=== PATIENT | male | born 1955 | race Caucasian/White ===

== ENCOUNTER → 2021-03-06 | Outpatient (CLI) | payer MEDICARE, MEDICAID ==
[2020-09-26 15:00] VITALS: BP 104/59
[~2021-03-06] MED LIST: ACET325T9 PO; FLUT1DIS3 IH; FOLI0.8C PO; GABA-585 PO; GABA300C18 PO; LACT1CAP19 PO; LEVE100020 PO; LEVO500T8 PO; MAGN200T7 PO; MULT-245 PO; OXYC1TAB15 PO; PANT40TA77 PO; THIA100T57 PO; TRAM50TA PO
--- NOTE | 2021-03-06 16:42 | RAD ---
XR CHEST 2V INDICATION: PRE OP. RIGHT HIP ARTHROPLASTY SCHEDULED 03/20/21 / [facility]. Instructions: / History: . COMPARISON STUDY: 09/20/2020. FINDINGS: Lungs: Normal lung volume. No pulmonary mass or consolidation. Right apical bullous disease. The trac heobronchial tree and hilar structures are normal. Pleura: No pleural effusion or pneumothorax. Heart and Mediastinum: The cardiomediastinal silhouette is normal. Atherosclerosis of the thoracic ao rta. IMPRESSION: No acute cardiopulmonary process. Electronically signed by: Jeremy Kothari MD (03/06/2021 4:40 PM) [id number]
== END ==
LOC: SURGPAT 13:37
PROVIDERS: ATTEND Orthopaedic Surgery
DX: Z01.818 Encounter for other preprocedural examination (principal); M16.11 Unilateral primary osteoarthritis, right hip; I70.0 Atherosclerosis of aorta
CPT/HCPCS: 36415; 71046; 82306; 83036

== ENCOUNTER 2021-03-20 07:14 | Inpatient (IN) | payer MEDICARE, MEDICAID ==
[2021-03-06 14:37] VITALS: BP 135/78
[2021-03-20] VITALS (9 sets, daily range): BP systolic 109–151; BP diastolic 61–98
[~2021-03-20] VITALS: Ht 180.3 cm; Wt 70.0 kg
[~2021-03-20 07:14] MED LIST changes: +ACETAMINOPHEN 500 MG TABLET PO PRN; +CLINDAMYCIN 900MG PREMIX 50 ML IV PRN; +DEXAMETHASONE SOD PHOS 4 MG/ML VIAL ONE; +GABAPENTIN 300 MG CAPSULE. PO PRN; +HYDROmorphone 2 MG/ML VIAL IVP PRN; +IV RINGERS,LACTATED 1000ML 1,000 ML IV SCH; +LIDOCAINE 2% PF 5 ML VIAL. ONE; +MELOXICAM 7.5 MG TABLET PO PRN; +MORPHINE SULFATE 2 MG/ML INJ. IVP PRN; +MORPHINE SULFATE 5 MG, KETOROLAC 30MG VIAL 30 MG, ROPIVacaine 0.5% PF 60 ML, EPINEPHrin... INT ART ONE; +ONDANSETRON PF 4 MG/2 ML VIAL. ONE; +PROCHLORPERAZINE 10 MG/2 ML VIAL. IVP PRN; +PROPOFOL 10 MG/ML (20ML) VIAL. IV ONE; +ROCURONIUM 50 MG/5 ML VIAL. ONE; +TRANEXAMIC ACID 1,000 MG in IV NS 50ML -- 1ST BAG INJ ONE; +fentaNYL PF VIAL 100 MCG/2 ML VIAL IVP PRN
[2021-03-20] MEDS ORDERED: HYDR-2761 PO (07:36)
[2021-03-20] MEDS ORDERED: TRANEXAMIC ACID in NS IVPB 100 ML ONE (07:42)
[2021-03-20 07:45] LABS: PROTHROMBIN TIME PATIENT 12.2 SEC (11.7-14.0)
[2021-03-20] MEDS ORDERED: fentaNYL PF VIAL 100 MCG/2 ML VIAL ONE ×2 (07:46→10:12)
[2021-03-20] MEDS ORDERED: TRANEXAMIC ACID 1,000 MG in IV NS 50ML -- 2ND BAG INJ ONE (08:00)
[2021-03-20] MEDS ORDERED: SUCCINYLCHOLINE 200 MG/10 ML VIAL. ONE (08:03)
[2021-03-20] MEDS ORDERED: VANCOMYCIN 1 GM VIAL. ONE ×2 (08:05)
[2021-03-20] MEDS ORDERED: INSULIN LISPRO 100 UNIT/ML 3ML VIAL for OP,RR ONLY. SQ PRN (08:45)
--- NOTE | 2021-03-20 08:46 | HP ---
ADMIT DATE: 03/20/2021 CHIEF COMPLAINT: Bilateral hip pain, right worse than left. HISTORY OF PRESENT ILLNESS: The patient is a 65-year-old male with bilateral hip pain, right greater than left, going on for many years, now severely affecting his activities of daily living. He has done physical therapy which just aggravated the hip. He has pain in the groin area, radiating to the upper thigh and is at a rehabilitation facility in [place] for about the past 4-5 months and has quit smoking since his entry into the facility. PAST MEDICAL HISTORY: Significant for history of alcoholism, seizures, COPD, reflux disease, dysphagia, and some protein malunion. PAST SURGICAL HISTORY: Esophageal surgery, colonoscopy and prostate surgery. FAMILY HISTORY: Denies any family history. SOCIAL HISTORY: He is a former smoker, quit over 7 months ago. Alcohol use is very much curtailed since his rehabilitation facility stay. Denies any drug use. MEDICATIONS: List is reviewed. ALLERGIES: HE HAS ALLERGIES TO CODEINE AND PENICILLIN. REVIEW OF SYSTEMS: Denies any chest pain, shortness of breath, focal weakness, numbness, tingling, or other recent constitutional symptoms or medical issues. PHYSICAL EXAMINATION: VITAL SIGNS: Per admission sheet. HEENT: Atraumatic, normocephalic. HEART: Regular rate and rhythm. LUNGS: Clear to auscultation bilaterally. ABDOMEN: Benign. EXTREMITIES: Examination of both hips, he has pain on already decreased range of motion. The right is worse than the left, where he has severe pain on his limited extremes of range of motion. The right leg is slightly short compared to the left. He has minimal tenderness over the trochanteric bursa. Negative straight leg raise bilaterally. Normal alignment, stability, bilateral knees and ankles with intact motor function, distal pulses, sensation, reflexes, skin in both lower extremities throughout. LABORATORY DATA: X-rays show bone on bone degenerative change in both hips with femoral head collapse and some superior erosion into the acetabulum on the right side compared to the left as well. IMPRESSION: Primary osteoarthritis of both hips, right hip pain, more so than left. TREATMENT PLAN: I previously covered with him risks, benefits, postoperative course of a total hip arthroplasty. The risks of instability, leg length inequality, continued pain, nerve or blood vessel damage, infection, medical or other anesthetic complications among others. He is severely limited in his ability to get around and we talked about the immobility related concerns with his current condition, especially as he has quit his smoking and alcohol and really wants to get around better and be more healthy. All his questions were answered and consent was obtained. He agrees to proceed with total hip arthroplasty on the right with [facility] Observ[facility] to follow. ZUNILDA DR: Darling TID: [id number]
[2021-03-20] MEDS ORDERED: HYDROmorphone 2 MG/ML VIAL ONE (09:09)
[2021-03-20] MEDS ORDERED: DESFLURANE 61 TO 120 MINUTES IH ONE (09:36)
[2021-03-20] MEDS ORDERED: SEVOFLURANE > 120 MINUTES. IH ONE (09:36)
[2021-03-20] MEDS ORDERED: DEXTROSE 50% 25 GM / 50ML DISP.SYRIN. IV PRN (10:00)
[2021-03-20] MEDS ORDERED: 0.9 % SODIUM CHLORIDE 10 ML DISP.SYRIN. IV PRN (10:00)
[2021-03-20] MEDS ORDERED: MORPHINE SULFATE 2 MG/ML INJ. IVP PRN (10:00)
[2021-03-20] MEDS ORDERED: diphenhydrAMINE 50 MG/ML VIAL IVP PRN (10:00)
[2021-03-20] MEDS ORDERED: fentaNYL PF VIAL 100 MCG/2 ML VIAL IVP PRN (10:00)
[2021-03-20] MEDS ORDERED: ZOLPIDEM 5 MG TABLET. PO PRN (10:00)
[2021-03-20] MEDS ORDERED: CALCIUM CARBONATE 500 MG TAB.CHEW PO PRN (10:00)
[2021-03-20] MEDS: fentaNYL PF VIAL 100 MCG/2 ML VIAL IVP PRN ×2 (10:16→10:31)
[2021-03-20] MEDS: IV NORMAL SALINE 1000ML BAG 1,000 ML IV SCH ×2 (10:35→17:25)
--- NOTE | 2021-03-20 11:29 | NUR ---
received from recovery. mk is slightly confused to situation and history. He has good sensation , motion and pulses bilateral lower extremities. His strength in his lower extremities is weak r>l. ARMANDO dressing is clean dry and intact. placed closed to nurse's station at this time for forgetfulness. States "I'm not crazy" cooperative at this time. Has no close family and is a poor historian
[2021-03-20] MEDS: ONDANSETRON PF 4 MG/2 ML VIAL. IVP SCH ×2 (12:00→18:00)
[2021-03-20] MEDS: ceFAZolin SODIUM IV Push 1 GM VIAL. IVP SCH ×2 (12:32→21:14)
[2021-03-20] MEDS: oxyCODONE IR 5 MG TABLET PO PRN ×3 (12:33→21:36)
[2021-03-20] MEDS: ONDANSETRON ODT 4 MG TAB.RAPDIS. PO SCH ×2 (12:34→17:22)
--- NOTE | 2021-03-20 15:00 | NUR ---
Cody is alert and oriented x4. he tolerated lunch well.
--- NOTE | 2021-03-20 15:47 | PDOC4 ---
Operative Note Operative Note Date of surgery: 03/20/2021 Preoperative diagnosis: Degenerative joint disease right hip Postoperative diagnosis: Same Operative procedure: Right total hip arthroplasty with anterior approach Surgeon Isak Audit Associate: Fuad hernandez Anesthesia: General Estimated blood loss: 200 cc Complications: None Drains: None Operative indications: Please see my orthopedic clinic note and dictated history and physical for detailed operative indications and note that we covered risks benefits postoperative course of the procedure. We specifically discussed the p ossibility of infection leg length inequality, nerve or blood vessel damage premature wear or loosening medical or other anesthetic complications among others. All his questions were answered and he wishes to proceed with surgical evaluation and treatment having given informed consent Operative text: Patient was identified procedure verified patient placed in the supine position on the [place] fracture table after adequate amounts of general anesthesia were administered. All bony prominences were well-padded and right hip was prepped and draped in the standard sterile fashion. After timeout was performed patient procedure identified and verified an incision was made just distal to the anterior superior iliac spine running along the tensor fascia steve for a distance of about 4 inches. Fascia was incised tensor fascia steve was taken laterally and circumflex vessels were located and coagulated and the anterior capsule was exposed with the rectus femoris gently retracted medially along with the underlying fascia that was dissected free. Capsule was split in a T-shaped incision and superior aspect of the capsule was excised and further superior release was carried out with the hip in external rotation. Hip was returned to 40 degrees external rotation and a napkin ring cut was made with an Avenir [place] broach for reference napkin ring was removed and femoral head was removed and sized. Reaming was carried out to a size 59 with a size 60 Biomet G7 acetabular shell was placed in proper version under fluoroscopic guidance and excellent scratch fit was noted. A 40 mm vitamin E liner was impacted into place. Femur was brought into maximum external rotation extension and adduction and release was carried out at the 11 o'clock position to free up the femur and retractors were placed medially and above the greater trochanter for maximum femoral exposure box osteotome was used along with the rattail rasp and successive size broaching up to a size 3 which provided excellent stability and fit within the canal. Calcar reaming was carried out and trial fitting with a +7 40 mm head to reproduce leg length and offset appropriately under fluoroscopic guidance. Trial components were removed and a size 3 standard offset collared Avenir stem was impacted into place with a +7 ceramic 40 mm head. Excellent stability and range of motion were noted and leg length and offset were reproduced closely according to preoperative measurements and measurements from the contralateral side. Thorough irrigation carried out with normal saline solution and pulse lavage. Intra-articular mixture was injected subperiosteally throughout the joint capsule and subcutaneous areas and 1 g vancomycin sprinkled throughout the joint capsule area. Fascia was closed with #1 PDS strata fix suture in a running fashion subcutaneous closure with buried Vicryl skin closure with subcuticular Monocryl and a sergio dressing was applied. Patient was returned to recovery room in stable condition having tolerated the procedure well. Fuad hernandez was present for the procedure and assisted in the patient positioning prepping draping retraction closure and dressings KIRTI BROWN MD Mar 20, 2021 15:47
[2021-03-20] MEDS ORDERED: WARFARIN 7.5 MG TABLET. PO ONE (16:00)
[2021-03-20] MEDS: FERROUS SULFATE 325 MG TABLET. PO SCH (17:22)
--- NOTE | 2021-03-20 22:29 | NUR ---
Assisting patient to toilet, pt stood from chair then immediately sat down on chair. "I can't do it." Situated in bed, urinal at bedside. States [facility] and that he's had multiple falls there. Roxicodone and Ambien given per request. Related a story that he used to "self medicate" himself inappropriately with Xanax, ETOH and other people's RX meds. States he and his brother are looking for an apartment for him. Expects to return to [facility] for 2 weeks of PT at discharge.
[2021-03-21 02:25] VITALS: BP 128/85
[2021-03-21] MEDS: ceFAZolin SODIUM IV Push 1 GM VIAL. IVP SCH (02:42)
[2021-03-21] MEDS: oxyCODONE IR 5 MG TABLET PO PRN ×3 (02:42→21:17)
[2021-03-21] MEDS ORDERED: MAGNESIUM HYDROXIDE 2,400 MG/30 ML ORAL.SUSP. PO PRN (06:00)
[2021-03-21] MEDS: ONDANSETRON ODT 4 MG TAB.RAPDIS. PO SCH ×2 (06:00)
[2021-03-21] MEDS: traMADol 50 MG TABLET PO SCH ×3 (06:00→17:08)
[2021-03-21] MEDS: ONDANSETRON PF 4 MG/2 ML VIAL. IVP SCH ×2 (06:00)
[2021-03-21] MEDS ORDERED: GABAPENTIN 100 MG CAPSULE. PO SCH (06:00)
[2021-03-21 06:22] VITALS: BP 124/88
[2021-03-21 09:11] LABS: PROTHROMBIN TIME PATIENT 13.6 SEC (11.7-14.0)
[2021-03-21] MEDS: MULTIVITAMIN with MINERAL TABLET. PO SCH (09:14)
[2021-03-21] MEDS: FERROUS SULFATE 325 MG TABLET. PO SCH ×2 (09:14→17:08)
[2021-03-21] MEDS: MELOXICAM 7.5 MG TABLET PO SCH (09:14)
[2021-03-21] MEDS: THIAMINE 100 MG TABLET. PO SCH (09:15)
[2021-03-21] MEDS: ACETAMINOPHEN 500 MG TABLET PO SCH ×3 (09:15→21:17)
[2021-03-21] MEDS: GABAPENTIN 100 MG CAPSULE. PO SCH ×2 (09:20→15:04)
[2021-03-21] MEDS: levETIRAcetam 500 MG TABLET PO SCH ×2 (09:20→21:17)
[2021-03-21] MEDS: PANTOPRAZOLE 40 MG TABLET.DR. PO SCH (09:20)
[2021-03-21] MEDS: MAGNESIUM OXIDE 400 MG TABLET PO SCH ×3 (09:20→21:17)
--- NOTE | 2021-03-21 10:18 | NUR ---
Pharmacy Warfarin Dosing Note S:Pharmacy consulted to assist with anticoagulation therapy started 03/20/21 with target INR: 1.6 - 2.5 O:CALVIN ESPINAL is a 65 year old M with ARTURO LABS: Last INR: 1 Last HGB: - Last HCT: - Last PLT: - Last dose of 7.5 mg given on 03/20/21 at 1723 Previous Regimen: Vitamin K given: Drug Interaction Changes: Ongoing Drug Interactions: A:INR of 1 is below desired range. Target range for this patient is: 1.6 - 2.5 P: Warfarin dose: 5 mg Today at 1600 Bridge Therapy: None Next INR due 03/22/21. Pharmacy anticoagulation service will continue to follow. MARCI LEIJA RPH, 03/21/21 [id number]
[2021-03-21] MEDS ORDERED: ONDANSETRON ODT 4 MG TAB.RAPDIS. PO PRN (12:00)
[2021-03-21] MEDS ORDERED: ONDANSETRON PF 4 MG/2 ML VIAL. IVP PRN (12:00)
[2021-03-21] MEDS: ALBUTEROL SULFATE 2.5 MG/3 ML NEBU. NEB SCH ×3 (12:05→21:02)
[2021-03-21] MEDS: BUDESONIDE 0.5 MG/2 ML NEBU. NEB SCH ×2 (12:05→21:02)
--- NOTE | 2021-03-21 13:31 | PDOC ---
PROGRESS NOTES Date of Service DATE: 03/21/21 TIME: 13:23 Subjective Subjective Problems overnight: Hip is sore but pain reasonably controlled, getting up and around with physical therapy Objective Vital Signs Vital Signs Date Time Temp Pulse Resp B/P (MAP) Pulse Ox O2 Delivery O2 Flow Rate FiO2 03/21/21 12:56 Room Air 03/21/21 12:08 98 03/21/21 09:14 2.0 03/21/21 06:22 98.1 96 18 124/88 (100) 98.1 Physical Exam Wilver dressing clean dry intact leg lengths equal distal neurovascular status intact Labs Laboratory Tests Test 03/20/21 07:12 03/20/21 08:35 03/21/21 08:35 Prothrombin Time 12.2 SEC (11.7-14.0) 13.6 SEC (11.7-14.0) Prothromb Time International Ratio 0.9 (0.8-1.1) 1.0 (0.8-1.1) Activated Partial Thromboplast Time 33 SEC (24-38) Glucose (Fingerstick) 112 mg/dL (70-99) Laboratory Tests Test 03/21/21 08:35 Prothrombin Time 13.6 SEC (11.7-14.0) Prothromb Time International Ratio 1.0 (0.8-1.1) Imaging Intra-Op imaging shows well-placed total hip arthroplasty right leg slightly shortened by maximum of about 4 mm which is improved from his preop shortening Assessment Assessment POD#1 right total hip arthroplasty Plan Plan of Care Continue mobilize with physical therapy, warfarin per anticoagulation clinic, back to [facility] on discharge Justicifation of Admission Dx: Justifications for Admission: Justification of Admission Dx: N/A KIRTI BROWN MD Mar 21, 2021 13:31
[2021-03-21] MEDS: IV NORMAL SALINE 1000ML BAG 1,000 ML IV SCH (13:37)
[2021-03-21 15:15] VITALS: BP 103/75
[2021-03-21] MEDS ORDERED: BISACODYL 10 MG SUPP.RECT. PR PRN (16:00)
[2021-03-21] MEDS ORDERED: WARFARIN 5 MG TABLET. PO ONE (16:00)
[2021-03-21 18:33] VITALS: BP 105/67
--- NOTE | 2021-03-21 20:22 | PATHOLOGY ---
[facility] Accession Number: [id number] . 01 Material submitted: . femur - RIGHT FEMORAL HEAD. Modifiers: right, head . 01 Clinical history: . RIGHT HIP OA R TOTAL HIP ANTERIOR . 02 Diagnosis: Segments of bone and articular cartilage, anterior right total hip arthroplasty: - Degenerative arthritis. (JPM/db; 03/21/2021) LBQ 03/21/2021 1516 Local . 02 Electronically signed: . Richard Beck MD, Pathologist NPI- [id number] . 01 Gross description: . The specimen is received in formalin, labeled "Teichmann, Cody L and femoral head". It consists of 2 hurley, irregular firm bony tissue segments measuring 3.8 and 6.2 cm. The larger fragment appears grossly consistent with a femoral head. The larger fragment displays an irregular articular surface with eburnation-like changes and a smooth resection surface with a 1.5 cm in diameter canal through the bone marrow. A maintenance representative section is submitted in A1 following decalcification. (MRF; 03/20/2021) MFE/MFE 03/20/2021 1520 Local . 02 Pathologist provided ICD-10: M16.11 . 02 CPT . 481237, [id number] Specimen Comment: A courtesy copy of this report has been sent to [phone] Specimen Comment: Report sent to / DR RAMIREZ Performed at: 01 [facility] [address], [place] [id number] MD Demetrius Negron MD Phone: [phone] Performed at: 02 [facility] [address] [place] [address], [place] [id number] MD Richard Beck MD Phone: [phone]
[2021-03-21] MEDS: GABAPENTIN 300 MG CAPSULE. PO SCH (21:17)
[2021-03-22] MEDS: traMADol 50 MG TABLET PO SCH ×4 (00:04→17:20)
[2021-03-22] MEDS: oxyCODONE IR 5 MG TABLET PO PRN ×3 (02:41→19:45)
[2021-03-22] MEDS: ACETAMINOPHEN 500 MG TABLET PO SCH ×4 (02:42→21:16)
[2021-03-22 05:04] LABS: PROTHROMBIN TIME PATIENT 20.9 SEC (11.7-14.0)
[2021-03-22] MEDS: PANTOPRAZOLE 40 MG TABLET.DR. PO SCH (05:51)
[2021-03-22 05:53] VITALS: BP 105/73
[2021-03-22] MEDS: BUDESONIDE 0.5 MG/2 ML NEBU. NEB SCH ×2 (07:07→20:52)
[2021-03-22] MEDS: ALBUTEROL SULFATE 2.5 MG/3 ML NEBU. NEB SCH ×4 (07:07→20:52)
--- NOTE | 2021-03-22 08:00 | NUR ---
resting quietly in bed. states that his pain 03/20.. Had a bad night. transfers himself from bed to wheelchair without problem. uses w/c to go to bathroom; otherwise uses walker for therapy.
[2021-03-22] MEDS: MAGNESIUM OXIDE 400 MG TABLET PO SCH ×3 (08:40→21:16)
[2021-03-22] MEDS: THIAMINE 100 MG TABLET. PO SCH (08:40)
[2021-03-22] MEDS: MULTIVITAMIN with MINERAL TABLET. PO SCH (08:40)
[2021-03-22] MEDS: GABAPENTIN 100 MG CAPSULE. PO SCH ×2 (08:41→17:20)
[2021-03-22] MEDS: FERROUS SULFATE 325 MG TABLET. PO SCH ×2 (08:41→17:19)
[2021-03-22] MEDS: MELOXICAM 7.5 MG TABLET PO SCH (08:41)
[2021-03-22 08:45] LABS: HEMOGLOBIN 9.8 g/dL (13.0-17.5)
[2021-03-22 11:15] VITALS: BP 110/61
[2021-03-22] MEDS: IV NORMAL SALINE 1000ML BAG 1,000 ML IV SCH (11:53)
[2021-03-22] MEDS: levETIRAcetam 500 MG TABLET PO SCH ×2 (11:53→21:16)
[2021-03-22] MEDS ORDERED: WARFARIN 1 MG TABLET. PO ONE (16:00)
--- NOTE | 2021-03-22 16:48 | PDOC ---
PROGRESS NOTES Date of Service DATE: 03/22/21 TIME: 16:46 Subjective Subjective Problems overnight: Less painful than yesterday and getting up and around a little bit better Objective Vital Signs Vital Signs Date Time Temp Pulse Resp B/P (MAP) Pulse Ox O2 Delivery O2 Flow Rate FiO2 03/22/21 15:15 94 Room Air 03/22/21 11:15 98.2 107 20 110/61 (77) 98.2 03/22/21 06:21 2.0 Physical Exam Wilvre dressing clean dry intact leg lengths equal distal neurovascular status intact Labs Laboratory Tests Test 03/21/21 08:35 03/22/21 04:10 Prothrombin Time 13.6 SEC (11.7-14.0) 20.9 SEC (11.7-14.0) Prothromb Time International Ratio 1.0 (0.8-1.1) 1.8 (0.8-1.1) Hemoglobin 9.8 g/dL (13.0-17.5) Hematocrit 29.0 % (39.0-53.0) Mean Corpuscular Hemoglobin Concent 34 g/dL (31-37) Laboratory Tests Test 03/22/21 04:10 Hemoglobin 9.8 g/dL (13.0-17.5) Hematocrit 29.0 % (39.0-53.0) Mean Corpuscular Hemoglobin Concent 34 g/dL (31-37) Prothrombin Time 20.9 SEC (11.7-14.0) Prothromb Time International Ratio 1.8 (0.8-1.1) Assessment Assessment POD#2 total hip arthroplasty Plan Plan of Care Continue mobilize with physical therapy weightbearing as tolerated Warfarin anticoagulation Transfer back to his facility planned tomorrow due to required testing for Covid Justicifation of Admission Dx: Justifications for Admission: Justification of Admission Dx: Yes Comments: Awaiting required Covid testing results for transfer back to his facility KIRTI BROWN MD Mar 22, 2021 16:48
--- NOTE | 2021-03-22 17:49 | NUR ---
reviewed discharge instructions with patient. reviewed incisional care, follow up restrictions to activities of living . oxycodone given for ride home. Coumadin given and explained would be getting lab draw every Friday the pharmacist will call Friday afternoon with dosage. home health will start on Friday. verbalized understanding of these instructions. dismissed to home with friend Addendum: 03/22/21 at 1753 by JUVENAL HARRIS RN wrong patient
[2021-03-22 18:22] VITALS: BP 111/81
[2021-03-22] MEDS: GABAPENTIN 300 MG CAPSULE. PO SCH (21:16)
[2021-03-23] MEDS: traMADol 50 MG TABLET PO SCH ×3 (01:13→12:02)
[2021-03-23] MEDS: ACETAMINOPHEN 500 MG TABLET PO SCH ×3 (03:06→14:13)
[2021-03-23] MEDS: oxyCODONE IR 5 MG TABLET PO PRN ×3 (03:06→14:13)
[2021-03-23] MEDS: PANTOPRAZOLE 40 MG TABLET.DR. PO SCH (06:14)
[2021-03-23 06:16] VITALS: BP 104/66
[2021-03-23] MEDS: BUDESONIDE 0.5 MG/2 ML NEBU. NEB SCH (06:20)
[2021-03-23] MEDS: ALBUTEROL SULFATE 2.5 MG/3 ML NEBU. NEB SCH ×2 (06:20→11:27)
[2021-03-23 08:13] LABS: HEMATOCRIT 28.2 % (39.0-53.0); HEMOGLOBIN 9.4 g/dL (13.0-17.5)
[2021-03-23 08:24] LABS: PROTHROMBIN TIME PATIENT 16.6 SEC (11.7-14.0)
[2021-03-23] MEDS: MELOXICAM 7.5 MG TABLET PO SCH (08:57)
[2021-03-23] MEDS: GABAPENTIN 100 MG CAPSULE. PO SCH ×2 (08:57→14:13)
[2021-03-23] MEDS: levETIRAcetam 500 MG TABLET PO SCH (08:57)
[2021-03-23] MEDS: MAGNESIUM OXIDE 400 MG TABLET PO SCH ×2 (08:57→14:12)
[2021-03-23] MEDS: THIAMINE 100 MG TABLET. PO SCH (08:57)
[2021-03-23] MEDS: FERROUS SULFATE 325 MG TABLET. PO SCH (08:57)
[2021-03-23] MEDS: MULTIVITAMIN with MINERAL TABLET. PO SCH (08:57)
--- NOTE | 2021-03-23 11:11 | NUR ---
Pharmacy Warfarin Dosing Note S:Pharmacy consulted to assist with anticoagulation therapy started 03/20/21 with target INR: 1.6 - 2.5 O:CALVIN ESPINAL is a 65 year old M with ARTURO Allergies:Penicillins codeine tramadol Height: 5 feet, 11 inches Weight: 70.0 kg LABS: Last INR: 1.4 Last HGB: 9.4 Last HCT: 28.2 Last PLT: - Ongoing Drug Interactions: A:INR below desired Range. Target Range for this patient is: 1.6 - 2.5 P: Warfarin dose: 3 mg will be given today prior to discharge. Give 3 mg daily. Draw INR on Friday, 03/26, and request attending physician to dose warfarin for a goal INR 1.6 - 2.5 through end of therapy 04/30/21 (6 weeks of therapy). Indication for warfarin is prevention of VTE after major joint surgery. MARCI LEIJA RPH, 03/23/21 1111
[2021-03-23] MEDS ORDERED: WARFARIN 3 MG TABLET. PO ONE (13:00)
[2021-03-23 14:23] VITALS: BP 107/76
[2021-03-23] MEDS ORDERED: OXYC5CAP PO (14:31)
--- NOTE | 2021-03-23 14:32 | SNU/HH DC ---
DISCHARGE ORDERS DISCHARGE INFORMATION: DISCHARGE DATE: Mar 23, 2021 FINAL DIAGNOSIS Status post right total hip arthroplasty CONDITION ON DISCHARGE: Stable CODE STATUS: Code Status: Full FCI: SNF STAY <30 DAYS: Yes POST DISCHARGE ORDERS: ACTIVITY ORDERS: Activity as tolerated, Progressive ambulation WEIGHT BEARING STATUS: As tolerated BATHING ORDERS: Shower-keep dressing dry, No Tub Bath until see DIET AFTER DISCHARGE: Regular WOUND/INCISION CARE: Ice to area for comfort, Do not change dressing, Reinforce dressing PRN, No wound care needed OTHER WOUND INSTRUCTIONS: DO NOT change ARMANDO dressing. It remains in place till your appointment CHECKS AFTER DISCHARGE: CHECKS AFTER DISCHARGE: Check blood press - daily FOLLOW-UP: ADDITIONAL FOLLOW-UP: Dr Parisi on March 30 at 10:15 am [phone] LAB ORDERS FOR FOLLOW-UP: HB weekly ANTICOAGULATION F/U NEEDED: PT/INR drawn QMon for six weeks. Target range 1.6 to 2.5. TREATMENT/EQUIPMENT ORDERS: ADAPTIVE EQUIPMENT NEEDED: Front wheeled walker Physical Therapy For: Evalulation/Treatment Occupational Therapy For: Evaluation/Treatment DISCHARGE MEDICATIONS: Home Meds Active Scripts Pantoprazole Sodium (PANTOPRAZOLE SODIUM ) 40 Mg Tablet., 40 MG PO DAILYAC for GERD for 30 Days, #30 TAB.SR 2 Refills Prov:ANTHONY CARDOZO MD 09/25/20 Reported Medications Hydrocodone Bit/Acetaminophen (HYDROCODONE-APAP 5-325 ) 1 Tab Tablet, 1 TAB PO PRN Q6HRS PRN for PAIN, TAB 0 Refills 03/20/21 Gabapentin (GABAPENTIN ) 300 Mg Capsule, 300 MG PO HS for NEUROGENIC PAIN, CAP 03/06/21 Gabapentin (GABAPENTIN ) 100 Mg Capsule, 100 MG PO BID for NEUROGENIC PAIN, CAP 03/06/21 Tramadol Hcl (TRAMADOL HCL) 50 Mg Tablet, 50 MG PO DAILY PRN for PAIN, TAB 0 Refills 03/06/21 Acetaminophen (TYLENOL) 325 Mg Tablet, 2 TAB PO PRN Q4HRS PRN for temp,pain, #30 TAB 09/21/20 Thiamine Hcl (VITAMIN B-1) 100 Mg Tablet, 1 TAB PO DAILY for supplement for 30 Days, #30 TAB 0 Refills 09/21/20 Multivitamin (MULTI VITAMIN DAILY) 1 Each Tablet, 1 TAB PO DAILY for supplement for 30 Days, #30 TAB 0 Refills 09/21/20 Magnesium Oxide (Mag-Oxide) 200 Mg Tablet, 2 TAB PO TID for supplement for 30 Days, #180 TAB 0 Refills 09/21/20 Levetiracetam (KEPPRA) 1,000 Mg Tablet, 1 TAB PO BID for seizures for 30 Days, #60 TAB 0 Refills 09/21/20 Fluticasone/Salmeterol (ADVAIR 250-50 DISKUS) 1 Each Disk.w.dev, 1 PUFF IH BID for copd, #3 INHALER 3 Refills 09/21/20 KIRTI PARISI MD Mar 23, 2021 14:32
[2021-03-23] MEDS ORDERED: WARF3TAB50 PO (14:54)
--- NOTE | 2021-03-23 16:36 | NUR ---
Patient left with transport from [facility] at 1620 in his wheelchair. Discharge education/instructions gone over with the patient and the facility. Report was called to Katelynn(?name/spelling) at [facility] at 1623 : #[phone]. Coumadin was given prior to discharge and instructions were typed out and gone over in detail with the facility. ARMANDO dressing CDI and working properly with instructions gone over in detail with the staff as well. Follow up appointment typed out on d/c paperwork and relayed to the facility. No concerns noted at discharge. Patient left with all his belongings
== END 2021-03-23 16:30 | DRG 470 ==
LOC: SURG 07:14 → 4 SOUTHEST 09:51 → OBSVTOIN 03-22 11:58
PROVIDERS: ADMIT Orthopaedic Surgery; ATTEND Orthopaedic Surgery
PROC: 0SR90JZ Replacement of Right Hip Joint with Synthetic Substitute, Open Approach (ICD-10-PCS; principal; 2021-03-20 07:30)
DX: M16.11 Unilateral primary osteoarthritis, right hip (principal); J44.9 Chronic obstructive pulmonary disease, unspecified; Z87.891 Personal history of nicotine dependence; Z96.641 Presence of right artificial hip joint; K21.9 Gastro-esophageal reflux disease without esophagitis; Z88.8 Allergy status to other drugs, medicaments and biological substances; Z88.0 Allergy status to penicillin; Z20.822 Contact with and (suspected) exposure to COVID-19
CPT/HCPCS: 36415; 76000; 82962; 85014; 85018; 85610; 85730; 86850; 86900; 86901; 94640; 94760; 99406; A4213; A4930; A6223; A6258; A6402; A6550; C1755; C1776; G0378; G0379; J0171; J0330; J0690; J1100; J1170; J1885; J2270; J2405; J2704; J2795; J3010; J3370; J3490; J7030; U0003; U0005; 97116-GP; 97150-GP; 97530-GP; 97535-GO; J7613; J7626